=== PATIENT | female | born 1950 | race Caucasian/White ===

== ENCOUNTER 2022-08-14 12:47 | Outpatient (REF) | payer MEDICARE, SELFPAY ==
[2022-08-14 13:02] VITALS: BMI 29.8
[2022-08-14 13:04] VITALS: BP 123/50; PULSE 115; RESP 16; TEMP 36.4; O2SAT 97
[2022-08-14 14:58] VITALS: BP 145/47; PULSE 112; RESP 16; O2SAT 97
== END 2022-08-14 12:48 | disposition home or self-care (01) ==
LOC: HO.MS 12:47
PROVIDERS: PCP Nurse Practitioner Adult Health; Visit Provider Ophthalmology
PROC: (CPT 67840; principal; 2022-08-14 14:40)
DX: H02.822 Cysts of right lower eyelid (principal); H35.3131 Nonexudative age-related macular degeneration, bilateral, early dry stage; H52.4 Presbyopia; Z85.118 Personal history of other malignant neoplasm of bronchus and lung; Z87.891 Personal history of nicotine dependence
CPT/HCPCS: 67840; 88304

== ENCOUNTER 2023-02-28 16:45 | Emergency (ER) | payer MEDICARE, SELFPAY ==
--- NOTE | ~2023-02-28 | CT_ITS ---
EXAMINATION: CT CHEST WITHOUT CONTRAST CLINICAL INFORMATION: Lung carcinoma, fall COMPARISON: None available. TECHNIQUE: Multidetector volumetric CT imaging of the chest was done. Axial MIP volume rendering provided. Sagittal and coronal reformatted images were obtained. This CT examination was performed using dose optimization techniques as appropriate, variously including the following: *Automated exposure control *Adjustment of mA and/or kV according to patient size (this includes techniques or standardized protocols for targeted exams where dose is matched to indication/reason for exam; i.e. extremities or head) *Use of iterative reconstruction technique DLP: 489 mGy-cm FINDINGS: ROD HANGER: Extensive bilateral disease parenchymal pleural and mediastinal, see below. LUNGS: There is evidence for chronic lung disease with interstitial pulmonary fibrosis with honeycombing at both bases right greater than left. There is a moderate size layering right-sided pleural effusion. There is extensive right perihilar abnormality with central airway narrowing on this nonenhanced study. This appears be combination of hilar intrinsic bronchial disease consistent with lung carcinoma history. Stents of perihilar infiltration and fibrosis which may be in part due to post treatment changes including radiation fibrosis. Difficulty and volume loss right middle lobe noted. Rind of nonspecific pleural thickening right hemithorax. MEDIASTINUM: Diffuse nonspecific esophageal thickening. No pathologic bulky lymphadenopathy. No obvious contralateral bulky lymph nodes although subtle pulmonic lymph nodes appear line prominent measuring up to 8 mm short axis. There are coronary artery calcification is present. Moderate pericardial disease. Port-A-Cath in place. CORONARY ARTERY CALCIFICATION: Present PLEURA: As above. AXILLA: No lymphadenopathy. UPPER ABDOMEN: Unremarkable. OSSEOUS STRUCTURES: Notable kyphotic deformity of the dorsal spine without statural loss or any discrete lesion. Extensive syndesmophytes consistent with dish. No sternal or rib deformity. CT/CT chest wo IV con IMPRESSION: 1. Extensive right hilar and perihilar abnormality consistent with lung carcinoma history. There is a moderate size layering right-sided pleural effusion. 2. Chronic end-stage lung disease with interstitial fibrosis. 3. Nonspecific esophageal thickening. 4. Moderate pericardial disease. 5. Coronary artery calcifications. Correlation with cardiac risk factors is recommended. 6. No definite fracture. Fleischner guidelines were followed.
--- NOTE | ~2023-02-28 | CT_ITS ---
EXAMINATION: NONCONTRAST HEAD CT NONCONTRAST CERVICAL SPINE CT INDICATION INFORMATION: Fall COMPARISON: None TECHNIQUE: Separate noncontrast CT examinations of the head and cervical spine were performed. Coronal and sagittal images were created for each examination at the technologist workstation. This CT examination was performed using dose optimization techniques as appropriate, variously including the following: *Automated exposure control *Adjustment of mA and/or kV according to patient size (this includes techniques or standardized protocols for targeted exams where dose is matched to indication/reason for exam; i.e. extremities or head) *Use of iterative reconstruction technique DLP: 1724 mGy-cm in conjunction with the chest CT. FINDINGS: Head: There is no evidence of acute intracranial hemorrhage or territorial infarction. No abnormal mass effect or midline shift is seen. Maldonado to white matter differentiation is well preserved. No extra-axial fluid collections are identified. No hydrocephalus. Proportional prominence of the ventricles and sulcal spaces is consistent with mild volume loss. Patchy periventricular and deep white matter hypoattenuation is consistent with moderate small vessel ischemic changes. Focal calcification in the midbrain. Right frontal and left parietal soft tissue swelling. No underlying calvarial fracture. The mastoid air cells and visualized portions of the paranasal sinuses are well aerated. Cervical spine: There is anatomic alignment of the vertebral bodies and posterior elements. The atlantoaxial and atlantooccipital articulations are intact. Vertebral body heights are maintained. There is multilevel intervertebral disc space narrowing with endplate osteophyte formation and facet arthropathy. No evidence of acute fracture. No prevertebral soft tissue swelling. Partially visualized area of consolidation of the right upper lobe with air bronchograms. Right pleural effusion partially noted. 1.7 cm hypoattenuating nodule along the posterior aspect of the right lobe of the thyroid gland. Partially visualized left chest wall central venous catheter. CT/CT cervical spine wo IV con IMPRESSION: 1. No acute intracranial finding. Chronic volume loss with small vessel ischemic change. 2. No acute fracture or malalignment of the cervical spine. Mild degenerative changes. 3. 1.7 cm hypoattenuating nodule along the posterior aspect of the right lobe of the thyroid gland. This can be evaluated further with nonemergent thyroid ultrasound right upper lobe consolidation with air bronchograms is partially visualized with associated pleural effusion. This will be further evaluated on the chest CT.
--- NOTE | ~2023-02-28 | CT_ITS ---
EXAMINATION: CT ABDOMEN AND PELVIS WITHOUT CONTRAST CLINICAL INFORMATION: Fall COMPARISON: Chest CT from today TECHNIQUE: Multidetector volumetric imaging was performed from the superior aspect of the liver through the pubic symphysis. Sagittal and coronal reformatted images were obtained on the technologist's workstation. This CT examination was performed using dose optimization techniques as appropriate, variously including the following: *Automated exposure control *Adjustment of mA and/or kV according to patient size (this includes techniques or standardized protocols for targeted exams where dose is matched to indication/reason for exam; i.e. extremities or head) *Use of iterative reconstruction technique DLP: 657 mGy-cm FINDINGS: LUNG BASES: Redemonstration of the moderate right-sided pleural effusion with fibrotic changes and areas of consolidation. LIVER, GALLBLADDER, AND BILIARY TREE: The liver is normal in size, shape, and attenuation. No focal hepatic lesion or biliary ductal dilatation is present. Multiple stones in the gallbladder lumen. No wall thickening or adjacent inflammation. PANCREAS: Unremarkable. SPLEEN: Unremarkable. ADRENAL GLANDS: Unremarkable. KIDNEYS AND URETERS: Absent left kidney. Solitary right kidney which is normal in size and position. No hydronephrosis. There is an exophytic mid pole posterior lesion measuring 1.4 cm. This measures higher than simple fluid attenuation, a 25 Hounsfield units. No calculi. BLADDER: Unremarkable. GASTROINTESTINAL TRACT: The stomach is unremarkable. Normal caliber small bowel. No obstruction. Colonic diverticulosis present. No diverticulitis. Mild to moderate colonic stool burden. No free air or free fluid. ABDOMINAL WALL: No significant hernia is appreciated. LYMPH NODES: Normal. VASCULAR: Normal caliber aorta with moderate atherosclerotic calcification. PELVIC VISCERA: Soft tissue fullness in the region of the vagina/uterus. Lack of IV contrast does limit this evaluation. There is no adnexal mass. OSSEOUS STRUCTURES: No acute or suspicious osseous abnormality. Mild degenerative changes throughout the spine. Intact pelvis. CT/CT abdomen pelvis wo IV con IMPRESSION: 1. No acute traumatic finding of the abdomen or pelvis. 2. Moderate right-sided pleural effusion with fibrotic changes and areas of consolidation. 3. Cholelithiasis. 4. Soft tissue fullness in the region of the vagina/uterus. Lack of IV contrast does limit this evaluation. This can be further evaluated with pelvic ultrasound. Fleischner guidelines were followed.
[2023-02-28 16:53] VITALS: BP 128/74; BP 159/82; PULSE 78; PULSE 95; RESP 18; TEMP 35.6; O2SAT 98; BMI 29.0
--- NOTE | 2023-02-28 17:09 | ED_ITS ---
HPI - Fall General Chief Complaint: Fall Stated Complaint: FALL Time Seen by Provider: 02/28/23 17:09 Source: patient Mode of arrival: EMS Limitations: no limitations History of Present Illness HPI Narrative: Patient with history of lung cancer with right pleural effusion obese unsteady on her feet not on any anticoagulants, was going downstairs lost balance fell down about 10 steps complaining of upper back pain no loss of consciousness no leg weakness, has pain in upper back and right shoulder no lower back pain no leg weakness no bladder bowel incontinence, patient got superficial laceration at top of the head Related Data Previous Rx's Medication Instructions Recorded ibuprofen 600 mg tablet 600 mg PO Q6H PRN fever or pain 02/28/23 #30 tabs Allergies Allergy/AdvReac Type Severity Reaction Status Date / Time No Known Allergies Allergy Verified 08/14/22 13:08 Review of Systems Review of Systems: Yes all other systems are reviewed and are negative [facility] Social History Social History Alcohol intake: former Smoked in Last 30 Days: No Use of substances other than those prescribed or required for medical reasons: No Advance Directives: No Advance Directives Information Provided: No Physical Exam Vital Signs: Vital Signs: Last Vital Signs Temp 97.5 F 02/28/23 18:42 Pulse 98 02/28/23 18:42 Resp 20 02/28/23 21:00 BP 154/87 H 02/28/23 18:42 Pulse Ox 100 02/28/23 18:42 O2 Del Method Room Air 02/28/23 18:42 BMI result Body Mass Index 29.0 Appearance: Alert. Oriented X3. No acute distress. Eyes: PERRLA, No Nystagmus HEENT: Pharynx normal. Oral Mucosa moist collar in place superficial laceration in the occipital area 1 cm in length Neck: Normal inspection. Neck supple. CVS: Normal heart rate and rhythm. Pulses normal. Respiratory: No respiratory distress. Equal air entry bilateral, no wheezing/rales/rhonchi Abdomen: Soft and nontender. Bowel sounds are present, no mass palpable, no CVA tenderness Skin: Skin warm and dry. Normal skin color. Normal skin turgor. Extremities: No lower extremity edema. No calf tenderness back; soft tissue tenderness upper thoracic spine Neuro: Oriented X 3. No motor deficit. No sensory deficit.No cerebellar signs , cranial nerves II-XII intact Medications Administered Discontinued Medications Generic Name Dose Route Start Last Admin Trade Name Maryjo PRN Reason Stop Dose Admin Ibuprofen 600 mg 02/28/23 19:28 02/28/23 19:32 Ibuprofen 600 Mg Tablet PO 02/28/23 19:29 600 mg ONCE ONE Administration Procedures Laceration Laceration 1: Site: scalp Size (cm): 1 Description: linear Depth: simple, single layer Skin layer closed with: other (hugo) Number of sutures: 3 Medical Decision Making Medical Decision Making [facility] Narrative: 810 pm Patient status post fall with superficial head laceration which was repaired using staple patient head CT C-spine CT and chest CT was negative patient denies any lower back pain was able to stand up took a few steps unsteady on her feet case management was consulted was not happy with the results. 815 suddenly before plan to discharge patient home patient started complaining of numbness of the lower extremity and in abdomen till umbilicus unable to lift her legs bilaterally deep tendon reflexes are present 2+ along with multiple other complaints arguing that she wants to go to [facility] now family is very rude with the staff no urinary or bowel incontinence no lumbar spine tenderness at all will place cervical collar [address] scan abdomen negative no loss of secral sensation no incontinence patient started feeling strength in the left leg back to normal now , also right leg and abdomen patient feels almost back to her baseline On examination left leg 2/5 able to lift her both legs L>R according to her her right leg is always weaker than the left DTR 2+ bilateral sensations intact clinically patient seems like have a conversion syndrome case discussed with trauma surgeon Dr. Steward at [facility] will re-evaluate the patient for possible MRI if needed because of multiple comorbid condition Radiology Impression Discussion of test interpretation with radiology: I have reviewed the radiologist's reading. Radiologist Impression: CT/CT abdomen pelvis wo IV con IMPRESSION: 1.? No acute traumatic finding of the abdomen or pelvis. 2.? Moderate right-sided pleural effusion with fibrotic changes and areas of consolidation. 3.? Cholelithiasis. 4.? Soft tissue fullness in the region of the vagina/uterus. Lack of IV contrast does limit this evaluation. This can be further evaluated with pelvic ultrasound. CT/CT head/brain wo IV con IMPRESSION: 1.? No acute intracranial finding. Chronic volume loss with small vessel ischemic change. 2.? No acute fracture or malalignment of the cervical spine. Mild degenerative changes. 3.? 1.7 cm hypoattenuating nodule along the posterior aspect of the right lobe of the thyroid gland. This can be evaluated further with nonemergent thyroid ultrasound right upper lobe consolidation with air bronchograms is partially visualized with associated pleural effusion. This will be further evaluated on the chest CT CT/CT chest wo IV con IMPRESSION: 1.? Extensive right hilar and perihilar abnormality consistent with lung carcinoma history. There is a moderate size layering right-sided pleural effusion. 2.? Chronic end-stage lung disease with interstitial fibrosis. 3.? Nonspecific esophageal thickening. 4.? Moderate pericardial disease. 5.? Coronary artery calcifications. Correlation with cardiac risk factors is recommended. ? 6.? No definite fracture.. Discharge Plan Discharge Clinical Impression: Fall (on) (from) other stairs and steps, initial encounter, Laceration of scalp, Bilateral leg weakness Patient Disposition: [facility] Transfer Details: [facility] ER Dr. Steward Additional Instructions: Care and cautions as advised Ibuprofen for pain Follow up with PCP if any concerns Staple removal in 5-7 days Prescriptions: New ibuprofen 600 mg tablet 600 mg PO Q6H PRN (Reason: fever or pain) Qty: 30 0RF Interventions: ED Discharge Assessment Last Done: 02/28/23 19:32
[2023-02-28 18:42] VITALS: BP 154/87; PULSE 98; RESP 16; TEMP 36.4; O2SAT 100
--- NOTE | 2023-02-28 19:08 | PC.NURSE ---
CT scan negatie at this time, c-collar removed
[2023-02-28] MEDS: Ibuprofen 600 MG TABLET PO (19:32)
--- NOTE | 2023-02-28 20:43 | PC.NURSE ---
Discharge reviewed with patient by doctor, this RN and case management. Pt suddenly reporting bLE numbness and abd numbness, pt reporting inability to walk. Amwar to bedside for neurological evaluation. Pt taken to CT scan at this time.
--- NOTE | 2023-02-28 20:58 | MHC.EDTECH ---
Call out to [facility] transfer line @[phone]. [facility] will call back
[2023-02-28 21:00] VITALS: RESP 20
--- NOTE | 2023-02-28 21:11 | MHC.CM.ED ---
Addendum entered by Prisca Shukla 02/28/23 22:03: [facility]. Addendum entered by Prisca Shukla 02/28/23 22:02: Exam negative. CT scans negative. Per Dr. Hsieh, pt will be transferred to [facility] via BLS. Original Note: CM met with patient and at the request of Dr. Lobato regarding discharge planning. Pt lives with . Ambulates independently. Has walker, but does not use it. Denies falls in past. No services. Pt states she fell backwards down the cellar stairs. C/o neck and body pain. Reviewed D/C options, as MD does not feel patient meets criteria for admission. Pt and , Leatha Pastrana refuse any rehab in a penitentiary. Would like home PT. Explained that patient could stay overnight for PT evaluation in the morning. Explained PT may recommend home, home with PT or STR. Explained that outpatient PT is usually ordered by the MD. Pt does not want to stay in ED, but feels she needs to stay in the hospital. then said that patient could go home, and that they would speak with PCP or return to ED if patient worsens. then requested an ambulance home. CM explained that there is no medical reason for BLS transport home and expressed concerns if patient cannot walk up 2 stairs into the home, then perhaps she should stay overnight for PT evaluation. CM suggested they speak about d/c plan, and I would come back in a few minutes. Within minutes, patients called this CM and said that both of her 's legs were numb and she could not lift them. She demanded that the patient be transferred to [facility]. States she is a trauma and she always goes to [facility]. CM spoke with Dr. Hsieh of pt symptoms and demand transfer to [facility]. asked if we were waiting until her was paralyzed. Again CM explained that the doctor was coming to examine the patient and that I could not transfer the patient myself. Dr. Hsieh examined patient and ordered a CT scan of lumbar spine. CM will follow this patient if D/C home or if patient desires services.
--- NOTE | 2023-02-28 21:48 | PC.NURSE ---
Pt CT scans negative at this time, pt reports I am now starting to be able to move my legs . Pt to be transferred to [facility] per request
--- NOTE | 2023-02-28 22:19 | PC.NURSE ---
Report given to [facility] ambulance service with no further questions at this time
== END 2023-02-28 22:27 | disposition short-term general hospital (02) ==
PROVIDERS: Emergency Provider Internal Medicine
DX: S01.01XA Laceration without foreign body of scalp, initial encounter (principal); M54.2 Cervicalgia; R51.9 Headache, unspecified; M54.6 Pain in thoracic spine; W01.10XA Fall on same level from slipping, tripping and stumbling with subsequent striking against unspecified object, initial encounter; Y93.9 Activity, unspecified; Y92.9 Unspecified place or not applicable; Y99.9 Unspecified external cause status; Z79.899 Other long term (current) drug therapy
CPT/HCPCS: 12001; 70450; 71250; 72125; 74176; 99285